=== PATIENT | female | born 1950 | race Caucasian/White ===

== ENCOUNTER 2019-03-24 09:26 | Outpatient (CLI) | payer MEDICARE, SELFPAY ==
[2019-03-24 09:52] LABS: Basophils Percent Auto 0.4 % (0.2-1.2); Eosinophils Absolute Auto 0.2 K/mm3 (0-0.3); Eosinophils Percent Auto 2.5 % (0-4.4); Hematocrit 44.3 % (37.0-47.0); Hemoglobin 14.7 g/dL (12.0-15.0); Immature Granulocyte Absolute 0.02 K/mm3 (0.00-0.031); Immature Granulocyte Percent A 0.3 % (0-0.5); Lymphocytes Absolute Auto 1.91 K/mm3 (0.9-3.2); Lymphocytes Percent Auto 28.4 % (18.3-44.2); Mean Corpuscular HGB Conc 33.2 g/dl (32-36); Mean Corpuscular Hemoglobin 31.2 pg (26-34); Mean Corpuscular Volume 94.1 fl (80-100); Mean Platelet Volume 10.5 fl (7.4-10.4); Monocytes Absolute Auto 0.8 K/mm3 (0.1-0.6); Monocytes Percent Auto 11.4 % (2.6-8.5); Neutrophils Absolute Auto 3.8 K/mm3 (1.3-6.7); Platelet Count Result 209 k/mm3 (150-375); Red Blood Count 4.71 M/mm3 (4.2-5.4); Red Cell Distribution Width 13.2 % (11.5-14.5); White Blood Count 6.7 K/mm3 (4.5-10.0)
[2019-03-24 10:02] LABS: Blood Urea Nitrogen 16 mg/dL (7-17); Carbon Dioxide 29 mmol/L (22-30); Chloride 99 mmol/L (98-107); Estimated Glomerular Filt Rate > 60; Glucose 92 mg/dL (65-105); Potassium 3.6 mmol/L (3.4-5.0); Sodium 139 mmol/L (137-145)
[2019-03-24 10:48] LABS: Vitamin D 25 Hydroxy 43.7 ng/mL
== END 2019-03-24 09:27 | disposition home or self-care (01) ==
PROVIDERS: PCP Family Medicine; Visit Provider Family Medicine
DX: I10 Essential (primary) hypertension (principal); D51.8 Other vitamin B12 deficiency anemias; E55.9 Vitamin D deficiency, unspecified
CPT/HCPCS: 36415; 80048; 82306; 82607; 85025

== ENCOUNTER 2020-10-01 15:11 | Outpatient (CLI) | payer MEDICARE, SELFPAY ==
--- NOTE | ~2020-10-01 | US_ITS ---
EXAMINATION: US carotid duplex BI DATE: 10/01/2020 16:41 INDICATION: Syncope. TECHNIQUE: Grayscale, color Doppler, and pulsed Doppler images of the cervical carotid arteries were obtained. The degree of vessel stenosis is placed in one of the following categories: normal, <50%, 5 0-69%, >=70% but less than near-occlusion, near-occlusion, or total occlusion. Note that percent sten osis relative to normal distal artery lumen diameter is indirectly measured from velocity measurement s as described by Dion, et al. Radiology 2003; 229:340-346. Notes: Normal: Peak systolic velocity <125 centimeters/sec and no plaque <50%. Peak systolic velocity <125 ( EDV <40; ICA/CCA PSV ratio <2.0; used these factors only a tandem lesions or low cardiac output or co ntralateral disease) 50-69 %: PSV 125-230 (EDV 40-100; ratio 2-4) >= 70% but less than near occlusion: PSV greater than 230 (EDV > 100; ratio> 4.0) Near Occlusion: PSV that is variable; markedly narrowed lumen Occlusion: Absent flow on color/spectral Doppler and no lumen on williamson scale. COMPARISON: None. FINDINGS: RIGHT: The right common carotid artery (CCA) peak systolic velocity (PSV) is 78 cm/s. The right internal car otid artery (ICA) PSV is 82 cm/s. The right ICA end-diastolic velocity (EDV) is 23 cm/s. The right IC A/CCA PSV ratio is 1.0. The external carotid artery (ECA) PSV is 62 cm/s. There is antegrade flow in the right vertebral artery. LEFT: The left CCA PSV is 83 cm/s. The left ICA PSV is 105 cm/s. The left ICA EDV is 33 cm/s. The left ICA/ CCA PSV ratio is 1.27. The ECA PSV is 105 cm/s. There is antegrade flow in the left vertebral artery . IMPRESSION: 1. Less than 50% stenosis in the right internal carotid artery by sonographic criteria. 2. Less than 50% stenosis in the left internal carotid artery by sonographic criteria. Reviewed, dictated and finalized at location B. IMPRESSION: 1. Less than 50% stenosis in the right internal carotid artery by sonographic [place]. 2. Less than 50% stenosis in the left internal carotid artery by sonographic cornelia haas.
[2020-10-01 17:30] LABS: Vitamin D 25 Hydroxy 58.9 ng/mL
== END 2020-10-01 15:12 | disposition home or self-care (01) ==
PROVIDERS: PCP Family Medicine; Referring Provider Family Medicine; Visit Provider Internal Medicine Cardiovascular Disease
DX: I10 Essential (primary) hypertension (principal); Z72.0 Tobacco use; I65.23 Occlusion and stenosis of bilateral carotid arteries
CPT/HCPCS: 36415; 82306; 82607; 93880

== ENCOUNTER → 2021-05-24 13:35 | Outpatient (CLI) | payer MEDICARE, SELFPAY ==
--- NOTE | ~2021-05-24 | XR_ITS ---
XR chest 2V DATE: 05/24/2021 13:48 INDICATION: Chronic active pulmonary disease TECHNIQUE: PA and lateral views COMPARISON: 12/24/2015 2 view chest FINDINGS: Mild cardiomegaly. There is aortic calcification and minimal unfolding. Electronic cardiac rehab nurse device is noted in the anterior upper inner left breast. No pulmonary infiltrate or consolidation, pleural effusion or pulmonary vascular congestion or pneumo thorax. Diffuse osteopenia. There is mild loss of height and anterior wedging of a lower thoracic vertebral body and degenerative spurring of the thoracic spine. IMPRESSION: Mild cardiomegaly Aortic atherosclerosis No active pulmonary disease Reviewed, dictated and finalized at location A. CTOR OF PSYCHIATRY
== END ==
PROVIDERS: PCP Family Medicine; Visit Provider Family Medicine
DX: J44.9 Chronic obstructive pulmonary disease, unspecified (principal); I51.7 Cardiomegaly; I70.0 Atherosclerosis of aorta
CPT/HCPCS: 71046

== ENCOUNTER 2022-11-30 18:34 | Emergency (ER) | payer MEDICARE, SELFPAY ==
--- NOTE | 2022-11-30 18:41 | ED.SOB ---
HPI - SOB/Dyspnea General Chief Complaint: Upper Respiratory Infection Stated Complaint: shortness of breath,had fever,weakness Source: patient and RN notes reviewed History of Present Illness HPI Narrative: 72 yo F presents to urgent care with complaints of SOB with exertion and exhaustion. Pt states this has been going on for the last 2 weeks. Pt states it started out with some vomiting and diarrhea for the first couple days which she thought was due to eating street food. Pt states she then developed extreme pruritis but never had a rash. Pt states she treated that with benadryl with good relief. Pt states she came back from [place] 2 weeks ago where she was living in a 55 and older community where Covid, RSV, and Valley fever was running rampant. Pt states she had sweats, fevers, and cough, which have all resolved. Pt denies any chest pain, abdominal pain, or dysuria. Pt states she has only urinated 2x today. Pt reports having a PCP appt tomorrow. Related Data Home Medications Medication Instructions Recorded Confirmed ascorbate calcium (vitamin C) 500 500 mg PO DAILY 03/24/19 11/30/22 mg tablet aspirin 81 mg tablet,delayed 81 mg PO DAILY 03/24/19 11/30/22 release (Adult Low Dose Aspirin) bupropion HCl 150 mg 24 hr tablet, 150 mg PO QAM 07/16/20 11/30/22 extended release cholecalciferol (vitamin D3) 125 125 mcg PO DAILY 07/16/20 11/30/22 mcg (5,000 unit) capsule alendronate 70 mg tablet 70 mg PO WEEKLY 04/09/21 11/30/22 duloxetine 60 mg capsule,delayed 60 mg PO DAILY 04/09/21 11/30/22 release (Cymbalta) trazodone 100 mg tablet 200 mg PO .QHS 04/09/21 11/30/22 fluticasone furoate 100 See Rx Instructions .Route .COMPLEX 11/30/22 11/30/22 mcg-vilanterol 25 mcg/dose inhalation powder (Breo Ellipta) oxybutynin chloride 5 mg tablet 5 mg PO BID 11/30/22 11/30/22 Allergies Allergy/AdvReac Type Severity Reaction Status Date / Time cefuroxime Allergy Intermediate Rash Verified 11/30/22 18:42 hydrocodone Allergy Mild Rash Verified 11/30/22 18:42 clarithromycin Allergy Unknown Rash Verified 11/30/22 18:42 gabapentin Allergy Unknown Swelling Verified 11/30/22 18:42 morphine Allergy Unknown Itching Verified 11/30/22 18:42 Sulfa (Sulfonamide Allergy Unknown Rash Verified 11/30/22 18:42 Antibiotics) zolpidem Allergy Unknown Unknown Verified 11/30/22 18:42 Review of Systems Review of Systems: Pertinent positives and pertinent negatives per HPI. [facility] Past Medical History Medical History Abnormal weight gain Bilateral cataracts BMI 31.0-31.9,adult BMI 32.0-32.9,adult BMI greater than 30 Chest pain Dermatitis Falls frequently Hammer toes of both feet Leg weakness, bilateral ANTOINE on CPAP Osteoarthritis of toe joint Syncope Tobacco abuse Urinary urgency Surgical History Surgical History History of eye surgery History of foot surgery Family History Family History Sibling Family history of malignant neoplasm of ovary Father Alcohol abuse Mother Dementia CHF (congestive heart failure) AAA (abdominal aortic aneurysm) Scoliosis Osteoarthritis Hammer toe Social History Social History Tobacco type: cigarettes Second hand tobacco smoke exposure: Yes Alcohol intake: current Substance use: never Substance use type: does not use Living arrangements: with family Occupation/Education: retired 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 There is no relevant family history pertinent to the patient complaint. Exam Narrative: GENERAL: This is a wel
[2022-11-30 18:45] VITALS: BP 137/87; PULSE 76; RESP 22; O2SAT 98
== END 2022-11-30 19:35 | disposition home or self-care (01) ==
PROVIDERS: Emergency Provider Nurse Practitioner Family; PCP Family Medicine
DX: R06.00 Dyspnea, unspecified (principal); Z20.822 Contact with and (suspected) exposure to COVID-19; H26.9 Unspecified cataract; G47.33 Obstructive sleep apnea (adult) (pediatric)
CPT/HCPCS: 87426; 99213; C9803; G0463

== ENCOUNTER 2022-12-01 09:00 | Outpatient (CLI) | payer MEDICARE, SELFPAY ==
--- NOTE | ~2022-12-01 | XR_ITS ---
XR chest 2V 12/01/2022 15:46 Indication: COPD. Procedure: 2 view chest Comparison: 12/24/2015 Findings: Heart size normal. No focal air space disease, pulmonary edema, pleural effusion or suspect ed pneumothorax. Impression: 1: No acute cardiopulmonary disease. Reviewed, dictated and finalized at location B. Impression: 1: No acute cardiopulmonary disease.
[2022-12-01 16:28] LABS: Basophils Percent Auto 0.4 % (0.2-1.2); Eosinophils Absolute Auto 0.1 K/mm3 (0-0.3); Eosinophils Percent Auto 1.3 % (0-4.4); Hematocrit 45.5 % (37.0-47.0); Hemoglobin 15.1 g/dL (12.0-15.0); Immature Granulocyte Absolute 0.03 K/mm3 (0.00-0.031); Immature Granulocyte Percent A 0.3 % (0-0.5); Lymphocytes Percent Auto 25.6 % (18.3-44.2); Mean Corpuscular HGB Conc 33.2 g/dl (32-36); Mean Corpuscular Hemoglobin 31.5 pg (26-34); Mean Corpuscular Volume 94.8 fl (80-100); Mean Platelet Volume 11.2 fl (7.4-10.4); Monocytes Percent Auto 10.8 % (2.6-8.5); Neutrophils Absolute Auto 5.5 K/mm3 (1.3-6.7); Neutrophils Percent Auto 61.6 % (45.5-73.1); Platelet Count Result 234 k/mm3 (150-375)
[2022-12-01 16:52] LABS: Alanine Aminotransferase 20 U/L (6-35); Albumin Level 4.5 g/dL (3.5-5.1); Alkaline Phosphatase 78 U/L (38-126); Anion Gap 8 mmol/L (8-16); Aspartate Amino Transferase 30 U/L (14-36); Bilirubin,Total 0.7 mg/dL (0.2-1.3); Blood Urea Nitrogen 14 mg/dL (7-17); Calcium 9.1 mg/dL (8.4-10.2); Carbon Dioxide 27 mmol/L (22-30); Chloride 97 mmol/L (98-107); Cholesterol 201 mg/dL (0-200); Estimated Glomerular Filt Rate > 60; Glucose 85 mg/dL (65-110); HDL Direct 54 mg/dL; Potassium 3.1 mmol/L (3.4-5.0); Sodium 132 mmol/L (137-145); Triglycerides 101 mg/dL (<150)
[2022-12-01 17:03] LABS: LDL Cholesterol Direct 119 mg/dL
[2022-12-01 17:44] LABS: Erythrocyte Sedimentation Rate 11 mm/hr (0-20)
[2022-12-01 18:26] LABS: Vitamin D 25 Hydroxy 42.6 ng/mL
[2022-12-05 10:42] LABS: CRP, High Sensitivity 3.2 mg/L (***)
== END 2022-12-01 09:01 | disposition home or self-care (01) ==
PROVIDERS: PCP Family Medicine; Visit Provider Family Medicine
DX: N28.9 Disorder of kidney and ureter, unspecified (principal); I10 Essential (primary) hypertension; E55.9 Vitamin D deficiency, unspecified; R74.8 Abnormal levels of other serum enzymes; M79.10 Myalgia, unspecified site; E78.2 Mixed hyperlipidemia; Z13.220 Encounter for screening for lipoid disorders; J44.9 Chronic obstructive pulmonary disease, unspecified
CPT/HCPCS: 36415; 71046; 80048; 80061; 80076; 82306; 82607; 84443; 85025; 85652; 86141

== ENCOUNTER 2022-12-02 14:51 | Emergency (ER) | payer MEDICARE, SELFPAY ==
[2022-12-02] VITALS (7 sets, daily range): BP systolic 119–179; BP diastolic 68–102; PULSE 66–88; RESP 18–24; TEMP 36.6; O2SAT 95–98
--- NOTE | ~2022-12-02 | XR_ITS ---
EXAMINATION: XR chest 2V DATE: 12/02/2022 20:11 INDICATION: Cough TECHNIQUE: frontal and lateral views of the chest were obtained. COMPARISON: Chest radiograph dated 12/01/2022 FINDINGS: Linear discoid atelectasis/scarring at the anterolateral right mid to lower lung zone. No other airsp camilo opacities, pulmonary edema, pleural effusion or pneumothorax. Heart size is normal. Moderate lowe r thoracic spondylosis. Left pectoral implantable manager monitoring. IMPRESSION: 1. Mild discoid atelectasis/scarring at the anterolateral right mid to lower lung zone. No other acut e cardiopulmonary disease. Reviewed, dictated and finalized at location A. IMPRESSION: 1. Mild discoid atelectasis/scarring at the anterolateral right mid to lower corrina ng zone. No other acute cardiopulmonary disease.
[2022-12-02 15:43] LABS: Basophils Percent Auto 0.4 % (0.2-1.2); Eosinophils Absolute Auto 0.1 K/mm3 (0-0.3); Eosinophils Percent Auto 1.6 % (0-4.4); Hematocrit 47.1 % (37.0-47.0); Hemoglobin 15.3 g/dL (12.0-15.0); Immature Granulocyte Absolute 0.02 K/mm3 (0.00-0.031); Immature Granulocyte Percent A 0.3 % (0-0.5); Lymphocytes Absolute Auto 1.79 K/mm3 (0.9-3.2); Lymphocytes Percent Auto 23.8 % (18.3-44.2); Mean Corpuscular HGB Conc 32.5 g/dl (32-36); Mean Corpuscular Hemoglobin 31.2 pg (26-34); Mean Corpuscular Volume 96.1 fl (80-100); Mean Platelet Volume 10.5 fl (7.4-10.4); Monocytes Absolute Auto 0.8 K/mm3 (0.1-0.6); Neutrophils Absolute Auto 4.7 K/mm3 (1.3-6.7); Neutrophils Percent Auto 62.9 % (45.5-73.1); Platelet Count Result 216 k/mm3 (150-375); Red Cell Distribution Width 13.1 % (11.5-14.5); White Blood Count 7.5 K/mm3 (4.5-10.0)
[2022-12-02 15:55] LABS: Alanine Aminotransferase 23 U/L (6-35); Albumin Level 4.7 g/dL (3.5-5.1); Alkaline Phosphatase 83 U/L (38-126); Anion Gap 7 mmol/L (8-16); Aspartate Amino Transferase 32 U/L (14-36); Bilirubin,Total 0.6 mg/dL (0.2-1.3); Blood Urea Nitrogen 12 mg/dL (7-17); Calcium 9.4 mg/dL (8.4-10.2); Carbon Dioxide 30 mmol/L (22-30); Chloride 101 mmol/L (98-107); Estimated CRCL calculation 54 ml/min; Estimated Glomerular Filt Rate > 60; Glucose 107 mg/dL (65-110); Lipase 54 U/L (23-300); Potassium 3.5 mmol/L (3.4-5.0); Sodium 138 mmol/L (137-145)
[2022-12-02 16:51] LABS: Appearance Urine Clear (Clear); Bacteria Urine None Seen /hpf; Bilirubin Urine Negative (Negative); Blood Urine Negative (Negative); Color Urine Dark Yellow (Yellow); Glucose Urine UA Negative (Negative); Ketones Urine 1+ mg/dL (Negative); Leukocyte Esterase Ur 1+ LEU/UL (Negative); Need Manual Microscopic Reviewed; Nitrate Urine Negative (Negative); Protein Urine Trace mg/dL (Negative); RBC Urine 0-2 /hpf (0-2); Specific Grav Ur 1.023 (1.001-1.035); Squamous Epithelial Cell Urine Occasional /hpf (Few); WBC Urine 0-5 /hpf; pH Urine 5.5 (5.0-9.0)
[2022-12-02 16:54] LABS: Add Urine Microscopic? YES
--- NOTE | 2022-12-02 19:10 | PC.NURSE ---
Report received from PETE Pacheco.
--- NOTE | 2022-12-02 19:51 | ED.NAVMDI ---
HPI - Nausea/Vomiting/Diarrhea General Chief complaint: Nausea/Vomiting/Diarrhea Stated complaint: nausea/dehydration Time Seen by Provider: 12/02/22 18:41 History of Present Illness HPI Narrative: This is a 72-year-old female, with past history of restless leg syndrome and ANTOINE, who presents to the emergency department complaining of nausea and vomiting for the past 2 days. The patient states she was recently in [place] moving out from a house, when she developed her symptoms. These are also associated with pruritus of the palms and soles of the feet. Her daughter, who is with her is also noted similar symptoms. The patient states she tested negative for COVID 2 days ago and has had no other known sick contacts. Related Data Home Medications Medication Instructions Recorded Confirmed ascorbate calcium (vitamin C) 500 500 mg PO DAILY 03/24/19 11/30/22 mg tablet aspirin 81 mg tablet,delayed 81 mg PO DAILY 03/24/19 11/30/22 release (Adult Low Dose Aspirin) bupropion HCl 150 mg 24 hr tablet, 150 mg PO QAM 07/16/20 11/30/22 extended release cholecalciferol (vitamin D3) 125 125 mcg PO DAILY 07/16/20 11/30/22 mcg (5,000 unit) capsule alendronate 70 mg tablet 70 mg PO WEEKLY 04/09/21 11/30/22 duloxetine 60 mg capsule,delayed 60 mg PO DAILY 04/09/21 11/30/22 release (Cymbalta) trazodone 100 mg tablet 200 mg PO .QHS 04/09/21 11/30/22 fluticasone furoate 100 See Rx Instructions .Route .COMPLEX 11/30/22 11/30/22 mcg-vilanterol 25 mcg/dose inhalation powder (Breo Ellipta) oxybutynin chloride 5 mg tablet 5 mg PO BID 11/30/22 11/30/22 celecoxib 200 mg capsule 200 mg PO DAILY 12/01/22 Allergies Allergy/AdvReac Type Severity Reaction Status Date / Time cefuroxime Allergy Intermediate Rash Verified 12/02/22 18:50 hydrocodone Allergy Mild Rash Verified 12/02/22 18:50 clarithromycin Allergy Unknown Rash Verified 12/02/22 18:50 gabapentin Allergy Unknown Swelling Verified 12/02/22 18:50 morphine Allergy Unknown Itching Verified 12/02/22 18:50 Sulfa (Sulfonamide Allergy Unknown Rash Verified 12/02/22 18:50 Antibiotics) zolpidem Allergy Unknown Unknown Verified 12/02/22 18:50 Review of Systems Review of Systems: CONSTITUTIONAL: Denies fever, chills, or sweats. CARDIOVASCULAR: Denies chest pain, palpitations, or edema. RESPIRATORY: Denies cough or dyspnea. GASTROINTESTINAL: Nausea, vomiting and nonbloody diarrhea denies abdominal pain GENITOURINARY: Denies dysuria or hematuria. SKIN: Pruritus of the hands and feet denies rash MUSCULOSKELETAL: Denies back pain, joint pain, or myalgia. NEUROLOGIC: Denies headache, numbness, dizziness, or weakness. PSYCHIATRIC: Denies anxiety or depression. [facility] Past Medical History Medical History Abnormal weight gain Bilateral cataracts BMI 30.0-30.9,adult BMI 31.0-31.9,adult BMI 32.0-32.9,adult BMI greater than 30 Carpal tunnel syndrome of right wrist Chest pain Dermatitis Falls frequently Foot fracture, left Hammer toes of both feet Leg weakness, bilateral Myalgia ANTOINE on CPAP Osteoarthritis of toe joint Osteoporosis Screen for colon cancer Screening mammogram for high-risk patient Syncope Tobacco abuse Urinary urgency Surgical History Surgical History History of eye surgery History of foot surgery Family History Family History Sibling Family history of malignant neoplasm of ovary Father Alcohol abuse Mother Dementia CHF (congestive heart failure) AAA (abdominal aortic aneurysm) Scoliosis Osteoarthritis Hammer toe Social History Social History Smoking status: Current every day smoker Tobacco type: cigarettes Second hand tobacco smoke exposure: Yes Alcohol intake: current Substance use: never Substanc
[2022-12-02 20:28] LABS: Erythrocyte Sedimentation Rate 16 mm/hr (0-20)
--- NOTE | 2022-12-02 20:49 | ECG_ITS ---
Measurements Intervals [place] Rate: 65 P: 14 MS: 199 QRS: 12 QRSD: 80 T: 12 QT: 409 QTc: 426 Interpretive Statements SINUS RHYTHM NONSPECIFIC ST AND T-WAVE ABNORMALITY NO PREVIOUS ECG AVAILABLE FOR COMPARISON Electronically Signed On 12-03-2022 11:47:11 CDT by Blaze Santos M.D.
== END 2022-12-02 21:54 | disposition home or self-care (01) ==
PROVIDERS: Emergency Medicine; Emergency Provider Preventive Medicine Aerospace Medicine; PCP Family Medicine
DX: B38.9 Coccidioidomycosis, unspecified (principal); R19.7 Diarrhea, unspecified; G47.33 Obstructive sleep apnea (adult) (pediatric); G25.81 Restless legs syndrome; M81.0 Age-related osteoporosis without current pathological fracture; M19.079 Primary osteoarthritis, unspecified ankle and foot; H26.9 Unspecified cataract; F17.210 Nicotine dependence, cigarettes, uncomplicated; Z79.82 Long term (current) use of aspirin; R94.31 Abnormal electrocardiogram [ECG] [EKG]
CPT/HCPCS: 36415; 71046; 80053; 81001; 83690; 85025; 85652; 93005; 99283

== ENCOUNTER 2022-12-23 13:57 | Outpatient (CLI) | payer MEDICARE, SELFPAY ==
[2022-12-23 15:20] LABS: Hematocrit 44.3 % (37.0-47.0); Hemoglobin 14.5 g/dL (12.0-15.0); Immature Granulocyte Percent A 0.2 % (0-0.5); Lymphocytes Percent Auto 27.9 % (18.3-44.2); Mean Corpuscular HGB Conc 32.7 g/dl (32-36); Mean Corpuscular Hemoglobin 31.7 pg (26-34); Mean Corpuscular Volume 96.7 fl (80-100); Mean Platelet Volume 11.5 fl (7.4-10.4); Monocytes Percent Auto 10.7 % (2.6-8.5); Neutrophils Percent Auto 57.5 % (45.5-73.1); Platelet Count Result 230 k/mm3 (150-375); Red Blood Count 4.58 M/mm3 (4.2-5.4); White Blood Count 8.1 K/mm3 (4.5-10.0)
[2022-12-23 15:21] LABS: Basophils Percent Auto 0.4 % (0.2-1.2); Eosinophils Absolute Auto 0.3 K/mm3 (0-0.3); Eosinophils Percent Auto 3.3 % (0-4.4); Immature Granulocyte Absolute 0.02 K/mm3 (0.00-0.031); Lymphocytes Absolute Auto 2.27 K/mm3 (0.9-3.2); Monocytes Absolute Auto 0.9 K/mm3 (0.1-0.6); Neutrophils Absolute Auto 4.7 K/mm3 (1.3-6.7)
[2022-12-23 15:25] LABS: Alanine Aminotransferase 22 U/L (6-35); Albumin Level 4.4 g/dL (3.5-5.1); Alkaline Phosphatase 99 U/L (38-126); Anion Gap 4 mmol/L (8-16); Aspartate Amino Transferase 38 U/L (14-36); Bilirubin,Total 0.5 mg/dL (0.2-1.3); Blood Urea Nitrogen 17 mg/dL (7-17); Calcium 9.5 mg/dL (8.4-10.2); Carbon Dioxide 29 mmol/L (22-30); Chloride 100 mmol/L (98-107); Creatine Kinase 215 U/L (30-135); Estimated Glomerular Filt Rate 55; Glucose 90 mg/dL (65-110); Potassium 4.3 mmol/L (3.4-5.0); Sodium 133 mmol/L (137-145)
[2022-12-23 16:21] LABS: Erythrocyte Sedimentation Rate 16 mm/hr (0-20)
[2022-12-30 16:56] LABS: Coccidioides Ab to F Ag (IgG) NEGATIVE; Coccidioides Ab to TP Ag (IgM) NEGATIVE
== END 2022-12-23 13:58 | disposition home or self-care (01) ==
PROVIDERS: PCP Family Medicine; Visit Provider Family Medicine
DX: A09 Infectious gastroenteritis and colitis, unspecified (principal); D51.9 Vitamin B12 deficiency anemia, unspecified; I10 Essential (primary) hypertension; R10.13 Epigastric pain; R20.0 Anesthesia of skin; R29.898 Other symptoms and signs involving the musculoskeletal system
CPT/HCPCS: 36415; 80053; 82550; 82607; 84443; 85025; 85652; 86635

== ENCOUNTER 2023-02-04 14:33 | Outpatient (CLI) | payer MEDICARE, SELFPAY ==
[2023-02-04 15:22] LABS: Basophils Percent Auto 0.4 % (0.2-1.2); Eosinophils Absolute Auto 0.2 K/mm3 (0-0.3); Eosinophils Percent Auto 2.5 % (0-4.4); Hematocrit 39.8 % (37.0-47.0); Hemoglobin 12.8 g/dL (12.0-15.0); Immature Granulocyte Absolute 0.03 K/mm3 (0.00-0.031); Immature Granulocyte Percent A 0.4 % (0-0.5); Lymphocytes Absolute Auto 1.63 K/mm3 (0.9-3.2); Lymphocytes Percent Auto 22.6 % (18.3-44.2); Mean Corpuscular HGB Conc 32.2 g/dl (32-36); Mean Corpuscular Hemoglobin 30.9 pg (26-34); Mean Corpuscular Volume 96.1 fl (80-100); Mean Platelet Volume 10.9 fl (7.4-10.4); Monocytes Absolute Auto 0.7 K/mm3 (0.1-0.6); Monocytes Percent Auto 9.7 % (2.6-8.5); Neutrophils Absolute Auto 4.7 K/mm3 (1.3-6.7); Neutrophils Percent Auto 64.4 % (45.5-73.1); Platelet Count Result 241 k/mm3 (150-375); Red Blood Count 4.14 M/mm3 (4.2-5.4); Red Cell Distribution Width 13.2 % (11.5-14.5); White Blood Count 7.2 K/mm3 (4.5-10.0)
[2023-02-04 15:35] LABS: Alanine Aminotransferase 21 U/L (6-35); Alkaline Phosphatase 82 U/L (38-126); Anion Gap 7 mmol/L (8-16); Aspartate Amino Transferase 34 U/L (14-36); Bilirubin,Total 0.7 mg/dL (0.2-1.3); Blood Urea Nitrogen 12 mg/dL (7-17); Calcium 9.2 mg/dL (8.4-10.2); Carbon Dioxide 26 mmol/L (22-30); Chloride 104 mmol/L (98-107); Creatine Kinase 93 U/L (30-135); Estimated Glomerular Filt Rate > 60; Glucose 109 mg/dL (65-110); Potassium 3.7 mmol/L (3.4-5.0); Sodium 137 mmol/L (137-145)
[2023-02-04 16:01] LABS: Erythrocyte Sedimentation Rate 22 mm/hr (0-20)
== END 2023-02-04 14:34 | disposition home or self-care (01) ==
PROVIDERS: PCP Family Medicine; Visit Provider Nurse Practitioner Family
DX: M79.10 Myalgia, unspecified site (principal); E78.2 Mixed hyperlipidemia; N28.9 Disorder of kidney and ureter, unspecified; I10 Essential (primary) hypertension; R63.5 Abnormal weight gain
CPT/HCPCS: 36415; 80053; 82550; 84443; 85025; 85652

== ENCOUNTER 2023-04-23 10:28 | Outpatient (CLI) | payer MEDICARE, SELFPAY ==
--- NOTE | ~2023-04-23 | US_ITS ---
EXAMINATION: US abdomen limited DATE: 04/23/2023 11:25 INDICATION: Epigastric pain TECHNIQUE: Multiple grayscale and Doppler ultrasound images of the abdomen were obtained. COMPARISON: None FINDINGS: The pancreatic head and body are normal in appearance. The pancreatic tail is not visualized. Liver has normal echogenicity and contour, with a smooth surface. No liver lesion identified. 3 shadowing w ithin the normal caliber intrahepatic bile ducts consistent with pneumobilia. Portal venous flow was seen in the hepatopetal, normal direction and has normal Doppler waveform. The visualized proximal ao rta and inferior vena cava are normal. Gallbladder not visualized consistent with reported history of cholecystectomy 30 years prior. The common bile duct measures 9-10 mm in maximal diameter which is w ithin normal limits given the age and prior cholecystectomy. IMPRESSION: 1. Mild dilation of the common bile duct which is within normal given age and prior cholecystectomy. 2. Pneumobilia which may be related to associated sphincterotomy. Reviewed, dictated and finalized at location A. H DYER IMPRESSION: 1. Mild dilation of the common bile duct which is within normal given age and p rior cholecystectomy. 2. Pneumobilia which may be related to associated sphincterotomy.
== END 2023-04-23 10:29 | disposition home or self-care (01) ==
PROVIDERS: PCP Family Medicine; Visit Provider Internal Medicine Gastroenterology
DX: R10.13 Epigastric pain (principal); G89.29 Other chronic pain; Z90.49 Acquired absence of other specified parts of digestive tract
CPT/HCPCS: 76705

== ENCOUNTER 2023-08-27 14:12 | Outpatient (CLI) | payer MEDICARE, SELFPAY ==
--- NOTE | ~2023-08-27 | XR_ITS ---
EXAMINATION: XR femur RT min 2V DATE: 08/27/2023 14:41 INDICATION: Right thigh pain. Fall. TECHNIQUE: 2 views of right femur on 6 radiographs were obtained. COMPARISON: None. FINDINGS: Bone alignment is normal. No fracture. There is mild osteoarthritis of right hip and right knee. No knee joint effusion. IMPRESSION: 1. Mild polyarticular osteoarthritis. Reviewed, dictated and finalized at location E.
[2023-08-27 15:34] LABS: Basophils Percent Auto 0.2 % (0.2-1.2); Eosinophils Percent Auto 0.1 % (0-4.4); Hematocrit 43.6 % (37.0-47.0); Hemoglobin 14.2 g/dL (12.0-15.0); Immature Granulocyte Absolute 0.05 K/mm3 (0.00-0.031); Immature Granulocyte Percent A 0.5 % (0-0.5); Lymphocytes Absolute Auto 0.92 K/mm3 (0.9-3.2); Lymphocytes Percent Auto 9.8 % (18.3-44.2); Mean Corpuscular HGB Conc 32.6 g/dl (32-36); Mean Corpuscular Hemoglobin 30.8 pg (26-34); Mean Corpuscular Volume 94.6 fl (80-100); Mean Platelet Volume 11.2 fl (7.4-10.4); Monocytes Absolute Auto 0.2 K/mm3 (0.1-0.6); Neutrophils Absolute Auto 8.2 K/mm3 (1.3-6.7); Neutrophils Percent Auto 87.4 % (45.5-73.1); Platelet Count Result 220 k/mm3 (150-375); Red Blood Count 4.61 M/mm3 (4.2-5.4); Red Cell Distribution Width 14.3 % (11.5-14.5); White Blood Count 9.4 K/mm3 (4.5-10.0)
[2023-08-27 16:16] LABS: Erythrocyte Sedimentation Rate 16 mm/hr (0-20)
[2023-08-27 17:16] LABS: Anion Gap 7 mmol/L (4-12); Blood Urea Nitrogen 21 mg/dL (7-17); Calcium 9.3 mg/dL (8.4-10.2); Carbon Dioxide 28 mmol/L (22-30); Chloride 99 mmol/L (98-107); Estimated Glomerular Filt Rate > 60; Glucose 107 mg/dL (65-110); Potassium 4.1 mmol/L (3.4-5.0); Sodium 134 mmol/L (137-145)
[2023-08-27 17:44] LABS: Thyroid Stimulating Hormone 0.238 uIU/mL (0.465-4.680)
[2023-08-27 18:02] LABS: Vitamin D 25 Hydroxy 46.3 ng/mL
[2023-08-31 11:49] LABS: CRP, High Sensitivity 2.1 mg/L
== END 2023-08-27 14:13 | disposition home or self-care (01) ==
LOC: ANHIMG 14:17
PROVIDERS: PCP Family Medicine; Visit Provider Family Medicine
DX: M79.604 Pain in right leg (principal); N28.9 Disorder of kidney and ureter, unspecified; I10 Essential (primary) hypertension; D51.8 Other vitamin B12 deficiency anemias; E55.9 Vitamin D deficiency, unspecified; M16.11 Unilateral primary osteoarthritis, right hip; M17.11 Unilateral primary osteoarthritis, right knee
CPT/HCPCS: 36415; 73552; 80048; 82306; 82607; 84443; 85025; 85652; 86141

== ENCOUNTER 2023-09-17 09:52 | Outpatient (CLI) | payer MEDICARE, SELFPAY ==
--- NOTE | ~2023-09-17 | CT_ITS ---
Noncontrast CT scan of the right femur Clinical history: Medial pain TECHNIQUE: Axial noncontrast imaging of the right humerus performed. Sagittal and coronal reformatted images were reconstructed. Dose reduction technique was used on this scan by utilizing automated exp osure control and iterative reconstruction technique. The dose-length product (DLP) was 1045.99 mGy-c m. Findings: No acute fracture or dislocation seen. No periosteal reaction seen. Joint spaces of the kne e and hip are intact. No joint effusion evident. Visualized musculature unremarkable. Subcutaneous soft tissues are unremarkable. No soft tissue mass or fluid collection seen. IMPRESSION: No significant abnormality identified. Reviewed, dictated and finalized at location .
--- NOTE | ~2023-09-17 | NM_ITS ---
EXAMINATION: NM bone 3 phase DATE: 09/17/2023 14:17 INDICATION: Right femur pain. TECHNIQUE: 25.1 mCi Tc-99m HDP was administered intravenously. Scintigrams of the femora were obtaine d in angiographic, blood pool, and delayed phases. COMPARISON: Right femur CT 09/17/2023 FINDINGS: The right femur is normal. There is increased activity at the sacrococcygeal junction on de layed phase images correlating with a healed fracture. IMPRESSION: 1. Normal right femur. Reviewed, dictated and finalized at location A. IMPRESSION: 1. Normal right femur.
== END 2023-09-17 09:53 | disposition home or self-care (01) ==
PROVIDERS: PCP Family Medicine; Visit Provider Family Medicine
DX: D72.9 Disorder of white blood cells, unspecified (principal); M79.604 Pain in right leg
CPT/HCPCS: 73700; 78315; A9503

== ENCOUNTER 2024-10-06 13:54 | Outpatient (CLI) | payer MEDICARE, SELFPAY ==
[2024-10-06 14:34] LABS: Hematocrit 42.9 % (37.0-47.0); Hemoglobin 13.2 g/dL (12.0-15.0); Mean Corpuscular HGB Conc 30.8 g/dl (32-36); Mean Corpuscular Hemoglobin 28.4 pg (26-34); Mean Corpuscular Volume 92.3 fl (80-100); Mean Platelet Volume 10.2 fl (7.4-10.4); Platelet Count Result 282 k/mm3 (150-375); Red Blood Count 4.65 M/mm3 (4.2-5.4); Red Cell Distribution Width 14.7 % (11.5-14.5); White Blood Count 6.8 K/mm3 (4.5-10.0)
[2024-10-06 14:48] LABS: Anion Gap 7 mmol/L (4-12); Blood Urea Nitrogen 12 mg/dL (7-17); Calcium 9.7 mg/dL (8.4-10.2); Carbon Dioxide 31 mmol/L (22-30); Chloride 101 mmol/L (98-107); Estimated Glomerular Filt Rate > 60; Glucose 94 mg/dL (65-110); Magnesium 2.2 mg/dL (1.6-2.3); Potassium 4.2 mmol/L (3.4-5.0); Sodium 139 mmol/L (137-145)
[2024-10-06 18:14] LABS: Iron 92 ug/dL (37-170)
[2024-10-06 18:24] LABS: Percent Iron Saturation 18 % (20-50)
== END 2024-10-06 13:55 | disposition home or self-care (01) ==
PROVIDERS: PCP Family Medicine; Visit Provider Family Medicine
DX: G25.81 Restless legs syndrome (principal); F32.5 Major depressive disorder, single episode, in full remission; I10 Essential (primary) hypertension; R74.8 Abnormal levels of other serum enzymes; N28.9 Disorder of kidney and ureter, unspecified; M79.10 Myalgia, unspecified site
CPT/HCPCS: 36415; 80048; 82728; 83540; 83550; 83735; 85027